=== PATIENT | male | born 1925 | race Caucasian/White ===

== ENCOUNTER 2016-06-30 08:24 | Observation (INO) | payer OTHER, MEDICARE ==
[~2016-06-30] VITALS: Ht 162.6 cm; Wt 62.9 kg
[2016-06-30 09:27] LABS: EOSINOPHIL (%) 0.7 % (0-5); EOSINOPHIL COUNT 0.1 K/uL (0-0.3); HEMATOCRIT 40.6 % (38.0-50.0); LYMPHOCYTE COUNT 1.5 K/uL (1.0-2.8); MCH 29.8 PG (29.0-34.0); MCHC 34.5 G/DL (30.0-36.0); MCV 86.4 FL (86-99); MEAN PLAT.VOLUME 9.7 uM^3 (9.0-12.4); MONOCYTE (%) 5.8 % (3-12); MONOCYTE COUNT 0.5 K/uL (0-0.8); NEUTROPHIL (%) 75.4 % (45-76); NEUTROPHIL COUNT 6.4 K/uL (1.8-6.4); PLATELET COUNT 196 K/uL (156-360); RBC DIS.WIDTH-CV 13.3 % (11.8-14.6); WHITE BLOOD COUNT 8.5 K/uL (4.1-10.2)
[2016-06-30 09:36] LABS: CHLORIDE 104 mEq/L (99-109); SODIUM 140 mEq/L (136-147)
[2016-06-30 09:38] LABS: GLUCOSE 114 mg/dL (70-99)
[2016-06-30 09:39] LABS: ANION GAP 9 MEQ/L (2-14)
[2016-06-30 09:40] LABS: TOTAL BILIRUBIN 0.7 mg/dL (0.0-1.0)
[2016-06-30 09:41] LABS: ALKALINE PHOSPHATASE 51 IU/L (3-129)
[2016-06-30 09:42] LABS: GFR ESTIMATE (CALCULATED) > 59 mL/min/
[2016-06-30 09:43] LABS: UREA NITROGEN (BUN) 22 mg/dL (9-23)
[2016-06-30 09:51] LABS: TROP-I INTERPRETATION NEGATIVE; TROPONIN-I 0.13 ng/mL (0.0-0.30)
[2016-06-30] MEDS ORDERED: PRAVACHOL40 MG PO (11:45)
[2016-06-30] MEDS ORDERED: VASOTEC20 MG PO (11:46)
[2016-06-30] MEDS ORDERED: TENORMIN25 MG PO (11:46)
[2016-06-30] MEDS ORDERED: HYDROCHLOROTHIA25 MG PO (11:46)
[2016-06-30] MEDS ORDERED: TYLENOL ARTHRI650 MG PO (11:47)
[2016-06-30] MEDS ORDERED: DAILY VITE1 EAC1 PO (11:47)
[2016-06-30] MEDS ORDERED: XALATAN2.5 ML BOTH EYES (11:47)
[2016-06-30] MEDS ORDERED: FISH OIL 11600 MG/5 PO (11:48)
[2016-06-30 13:17] VITALS: BP 134/86
[2016-06-30 15:40] VITALS: BP 126/70
[2016-06-30 16:36] LABS: INTER. NORMALIZED RATIO 1.1
[2016-06-30 16:57] LABS: TROP-I INTERPRETATION NEGATIVE; TROPONIN-I 0.15 ng/mL (0.0-0.30)
[2016-06-30 20:00] VITALS: BP 146/77
[2016-07-01 01:05] VITALS: BP 132/68
[2016-07-01 04:52] VITALS: BP 115/61
[2016-07-01 05:48] LABS: HEMATOCRIT 40.9 % (38.0-50.0); MCH 29.6 PG (29.0-34.0); MCHC 33.7 G/DL (30.0-36.0); MCV 87.6 FL (86-99); MEAN PLAT.VOLUME 9.7 uM^3 (9.0-12.4); PLATELET COUNT 185 K/uL (156-360); RBC DIS.WIDTH-CV 13.6 % (11.8-14.6); RBC DIS.WIDTH-SD 43.2 % (39-53); RED BLOOD COUNT 4.67 M/uL (4.00-5.50); WHITE BLOOD COUNT 7.1 K/uL (4.1-10.2)
[2016-07-01 06:12] LABS: ANION GAP 8 MEQ/L (2-14); CHLORIDE 103 MEQ/L (99-109); GFR ESTIMATE (CALCULATED) > 59 mL/min/; GLUCOSE 98 mg/dL (70-99); POTASSIUM 3.6 MEQ/L (3.7-5.4); SAMPLE HEMOLYSIS CHECK 0; SAMPLE ICTERIC CHECK 0; SAMPLE LIPEMIA CHECK 0; SODIUM 138 MEQ/L (136-147); UREA NITROGEN (BUN) 24 mg/dL (9-23)
[2016-07-01 07:52] VITALS: BP 130/59
[2016-07-01] MEDS ORDERED: ELIQUIS2.5 MG PO (11:18)
[2016-07-01] MEDS ORDERED: CARDIZEM CD,CA240 MG PO (11:18)
[2016-07-01 11:41] VITALS: BP 116/68
== END 2016-07-01 12:30 | disposition home or self-care (01) ==
LOC: EME → EDBD 08:24 → EME 08:24 → EDOF 12:14 → 5WEST 13:06
PROVIDERS: Emergency Medicine; Internal Medicine
DX: I48.91 Unspecified atrial fibrillation (principal); I10 Essential (primary) hypertension; E78.5 Hyperlipidemia, unspecified; M19.90 Unspecified osteoarthritis, unspecified site; Z85.828 Personal history of other malignant neoplasm of skin; Z87.891 Personal history of nicotine dependence; Z82.49 Family history of ischemic heart disease and other diseases of the circulatory system; Z80.8 Family history of malignant neoplasm of other organs or systems; Z88.0 Allergy status to penicillin
CPT/HCPCS: 71020; 80048; 80053; 84443; 84484; 85025; 85027; 85610; 93005; 93306; 93971; 99281; 99284; G0378